=== PATIENT | male | born 1995 | race Two or more races ===

== ENCOUNTER 2024-02-22 00:38 | Inpatient (IN) | payer OTHER ==
[~2024-02-22] VITALS: Ht 165.1 cm; Wt 55.9 kg
[2024-02-22 02:37] LABS: BASOPHILS % (AUTO) 0.7 % (0.0-2.0); EOSINOPHILS % (AUTO) 2.4 % (1.0-6.0); HEMATOCRIT 45.2 % (41-53); HEMOGLOBIN 15.3 g/dL (13.5-17.5); LYMPHOCYTES # (AUTO) 2.3 K/uL (1.0-4.8); LYMPHOCYTES % (AUTO) 34.8 % (22.0-44.0); MEAN CORPUSCULAR HEMOGLOBIN 31.5 pg (26.0-34.0); MEAN CORPUSCULAR HGB CONC 33.9 G/dL (31.0-37.0); MEAN CORPUSCULAR VOLUME 93 fL (80-100); MONOCYTES # (AUTO) 0.7 K/uL (0.1-1.0); MONOCYTES % (AUTO) 10.9 % (2.0-9.0); NEUTROPHILS # (AUTO) 3.4 K/uL (1.8-7.7); NEUTROPHILS % (AUTO) 51.2 % (40.0-70.0); PLATELET COUNT (AUTO) 263 K/uL (150-450); RED BLOOD CELL COUNT(AUTO) 4.88 MIL/uL (4.50-5.90); WHITE BLOOD COUNT (AUTO) 6.6 K/uL (4.5-11.0)
[2024-02-22 02:45] LABS: ANION GAP 3 mmol/L (8-16); CALCIUM, TOTAL 8.8 mg/dL (8.8-10.5); CARBON DIOXIDE 33 mmol/L (22-29); CHLORIDE 103 mmol/L (98-107); CREATININE 0.71 mg/dL (0.60-1.30); GLOMERULAR FILTR. RATE CALC > 60 mL/min (>60); GLUCOSE,RANDOM 88 mg/dL (70-110); POTASSIUM 3.9 mmol/L (3.5-5.1); SODIUM SERUM 139 mmol/L (136-145); UREA NITROGEN, BLOOD 11 mg/dL (7-18)
[2024-02-22 02:59] LABS: ALANINE AMINOTRANSFERASE 30 U/L (12-78); ALBUMIN 3.6 g/dL (3.4-5.0); ALKALINE PHOSPHATASE 103 U/L (46-116); ASPARTATE AMINOTRANSFERASE 19 U/L (15-37); BILIRUBIN,TOTAL 0.4 mg/dL (0.1-1.0); LIPASE 64 U/L (16-77); TOTAL PROTEIN, SERUM 7.5 g/dL (6.4-8.2)
[2024-02-22] MEDS: MORPHINE SULFATE 2 MG/ML SYRINGE IVP ONE (05:23)
[2024-02-22] MEDS ORDERED: ONDANSETRON HCL 4 MG/2 ML VIAL IVP PRN (05:30)
[2024-02-22] MEDS: HEPARIN SODIUM,PORCINE 5,000 UNITS/ML VIAL SQ SCH (08:12)
[2024-02-22] MEDS: DOCUSATE SODIUM 100 MG CAPSULE PO SCH (08:14)
[2024-02-22 11:19] LABS: APPEARANCE,URINE CLEAR (CLEAR); BILIRUBIN,URINE NEGATIVE (NEGATIVE); COLOR,URINE LIGHT YELLOW (YELLOW); GLUCOSE, URINE (UA) NEGATIVE (NEGATIVE); KETONES,URINE NEGATIVE (NEGATIVE); LEUKOCYTE ESTERASE ,URINE NEGATIVE (NEGATIVE); NITRATE,URINE NEGATIVE (NEGATIVE); OCCULT BLOOD,URINE NEGATIVE (NEGATIVE); PROTEIN,URINE NEGATIVE (NEGATIVE); UROBILINOGEN,URINE <=1.0 mg/dL (<=1.0)
[2024-02-22 11:20] LABS: SPECIFIC GRAVITIY, URINE > 1.050 (1.003-1.030)
[2024-02-22 12:10] VITALS: BP 99/52; PULSE 59; RESP 20; TEMP 97.7; O2SAT 100
[2024-02-22] MEDS ORDERED: INFLUENZA VIRUS VACCINE TVS (6MO+) 2024-25/PF 45 MCG/0.5 ML SYRINGE IM. ONE (14:15)
[2024-02-22] MEDS: RINGERS SOLUTION,LACTATED 1,000 ML IV ONE (15:25)
[2024-02-22] MEDS: KETOROLAC TROMETHAMINE 15 MG/ML VIAL IVP PRN (15:37)
[2024-02-22 16:00] VITALS: BP 104/61; PULSE 77; RESP 18; TEMP 97.6; O2SAT 100
[2024-02-22 19:42] VITALS: BP 105/67; PULSE 70; RESP 18; TEMP 97.9; O2SAT 98
[2024-02-23 04:56] VITALS: BP 109/71; PULSE 76; RESP 18; TEMP 98.3; O2SAT 98
[2024-02-23 07:16] LABS: BASOPHILS % (AUTO) 0.6 % (0.0-2.0); EOSINOPHILS % (AUTO) 2.2 % (1.0-6.0); HEMOGLOBIN 14.8 g/dL (13.5-17.5); LYMPHOCYTES # (AUTO) 1.7 K/uL (1.0-4.8); MEAN CORPUSCULAR HEMOGLOBIN 31.9 pg (26.0-34.0); MEAN CORPUSCULAR HGB CONC 34.4 G/dL (31.0-37.0); MEAN CORPUSCULAR VOLUME 93 fL (80-100); MONOCYTES # (AUTO) 0.5 K/uL (0.1-1.0); MONOCYTES % (AUTO) 9.1 % (2.0-9.0); NEUTROPHILS # (AUTO) 3.6 K/uL (1.8-7.7); NEUTROPHILS % (AUTO) 60.1 % (40.0-70.0); PLATELET COUNT (AUTO) 231 K/uL (150-450); RED BLOOD CELL COUNT(AUTO) 4.63 MIL/uL (4.50-5.90); WHITE BLOOD COUNT (AUTO) 5.9 K/uL (4.5-11.0)
[2024-02-23 07:34] LABS: ANION GAP 4 mmol/L (8-16); CALCIUM, TOTAL 8.8 mg/dL (8.8-10.5); CARBON DIOXIDE 32 mmol/L (22-29); CHLORIDE 106 mmol/L (98-107); CREATININE 0.86 mg/dL (0.60-1.30); GLOMERULAR FILTR. RATE CALC > 60 mL/min (>60); GLUCOSE,RANDOM 76 mg/dL (70-110); POTASSIUM 4.2 mmol/L (3.5-5.1); SODIUM SERUM 142 mmol/L (136-145); UREA NITROGEN, BLOOD 18 mg/dL (7-18)
[2024-02-23 08:07] VITALS: BP 110/57; PULSE 75; RESP 18; TEMP 98.5
[2024-02-23] MEDS: ACETAMINOPHEN 325 MG TABLET PO PRN (08:18)
== END 2024-02-23 19:15 | DRG 394 ==
LOC: EMS 00:41 → EDH 05:43 → 6S 12:10
PROVIDERS: ADMIT Internal Medicine; ATTEND Internal Medicine
DX: K40.30 Unilateral inguinal hernia, with obstruction, without gangrene, not specified as recurrent (principal); E46 Unspecified protein-calorie malnutrition; E87.3 Alkalosis; E86.0 Dehydration; I95.9 Hypotension, unspecified; N50.82 Scrotal pain; Z88.0 Allergy status to penicillin; Z68.20 Body mass index [BMI] 20.0-20.9, adult
CPT/HCPCS: 74177; 80048; 80076; 81003; 83690; 83735; 85025; 86706; 87340; J1644; J1885; J2270; J7120

== ENCOUNTER 2024-03-24 20:22 | Inpatient (IN) | payer OTHER ==
[~2024-03-24] VITALS: Ht 162.6 cm; Wt 63.6 kg
[2024-03-24 21:30] LABS: BASOPHILS % (AUTO) 0.6 % (0.0-2.0); EOSINOPHILS % (AUTO) 1.1 % (1.0-6.0); HEMATOCRIT 43.2 % (41-53); HEMOGLOBIN 14.7 g/dL (13.5-17.5); LYMPHOCYTES # (AUTO) 1.7 K/uL (1.0-4.8); LYMPHOCYTES % (AUTO) 22.6 % (22.0-44.0); MEAN CORPUSCULAR HEMOGLOBIN 31.2 pg (26.0-34.0); MEAN CORPUSCULAR HGB CONC 34.1 G/dL (31.0-37.0); MEAN CORPUSCULAR VOLUME 92 fL (80-100); MONOCYTES # (AUTO) 0.7 K/uL (0.1-1.0); MONOCYTES % (AUTO) 8.7 % (2.0-9.0); NEUTROPHILS # (AUTO) 5.2 K/uL (1.8-7.7); PLATELET COUNT (AUTO) 269 K/uL (150-450); RED BLOOD CELL COUNT(AUTO) 4.72 MIL/uL (4.50-5.90); RED CELL DISTRIBUTION WIDTH 12.7 % (11.5-14.5); WHITE BLOOD COUNT (AUTO) 7.7 K/uL (4.5-11.0)
[2024-03-24 21:40] LABS: ANION GAP 9 mmol/L (8-16); CALCIUM, TOTAL 9.3 mg/dL (8.8-10.5); CARBON DIOXIDE 28 mmol/L (22-29); CHLORIDE 104 mmol/L (98-107); GLOMERULAR FILTR. RATE CALC > 60 mL/min (>60); GLUCOSE,RANDOM 127 mg/dL (70-110); SODIUM SERUM 141 mmol/L (136-145); UREA NITROGEN, BLOOD 10 mg/dL (7-18)
[2024-03-24 21:44] LABS: ALANINE AMINOTRANSFERASE 70 U/L (12-78); ALBUMIN 3.7 g/dL (3.4-5.0); ALKALINE PHOSPHATASE 114 U/L (46-116); ASPARTATE AMINOTRANSFERASE 36 U/L (15-37); BILIRUBIN,TOTAL 0.2 mg/dL (0.1-1.0); LIPASE 56 U/L (16-77); TOTAL PROTEIN, SERUM 7.8 g/dL (6.4-8.2)
[2024-03-24] MEDS: RINGERS SOLUTION,LACTATED 1,000 ML IV ONE (23:00)
[2024-03-24] MEDS ORDERED: MAGNESIUM HYDROXIDE SUSPENSION 30 ML UDCUP PO PRN (23:30)
[2024-03-24] MEDS ORDERED: OxyCODONE HCL/ACETAMINOPHEN 5-325 MG TABLET PO PRN (23:30)
[2024-03-24] MEDS ORDERED: ACETAMINOPHEN 325 MG TABLET PO PRN (23:30)
[2024-03-25] MEDS: MORPHINE SULFATE 2 MG/ML SYRINGE IVP PRN (02:29)
[2024-03-25] MEDS: SODIUM CHLORIDE 0.9% 1,000 ML IV ONE (02:31)
[2024-03-25] MEDS: ONDANSETRON HCL 4 MG/2 ML VIAL IVP PRN (02:39)
[2024-03-25 03:52] VITALS: BP 124/74; PULSE 65; RESP 18; TEMP 98; O2SAT 100
[2024-03-25 04:25] VITALS: BP 121/77; PULSE 67; RESP 18; TEMP 98.1; O2SAT 99
[2024-03-25] MEDS ORDERED: ROCURONIUM BROMIDE 10 MG/ML 5 ML VIAL ONE (06:39)
[2024-03-25] MEDS ORDERED: KETOROLAC TROMETHAMINE 60 MG/2 ML VIAL IM ONE (06:39)
[2024-03-25] MEDS ORDERED: DEXAMETHASONE SOD PHOS 4 MG/ML VIAL ONE (06:39)
[2024-03-25] MEDS ORDERED: LIDOCAINE/PF 2% 5 ML VIAL ONE (06:39)
[2024-03-25] MEDS ORDERED: EPHEDrine SULFATE 50 MG/ML VIAL ONE (06:39)
[2024-03-25] MEDS ORDERED: GLYCOPYRROLATE 0.2 MG/ML VIAL ONE (06:39)
[2024-03-25] MEDS ORDERED: SUGAMMADEX SODIUM 200 MG/2 ML VIAL IVP ONE (06:39)
[2024-03-25] MEDS ORDERED: ONDANSETRON HCL 4 MG/2 ML VIAL ONE (06:39)
[2024-03-25] MEDS ORDERED: FentaNYL CITRATE PF 100 MCG/2 ML VIAL ONE (06:39)
[2024-03-25] MEDS ORDERED: MIDAZOLAM HCL 2 MG/2 ML VIAL ONE (06:39)
[2024-03-25] MEDS ORDERED: PROPOFOL 1% 20 ML VIAL IVP ONE (06:39)
[2024-03-25 08:34] VITALS: BP 126/70; PULSE 72; RESP 18; TEMP 98; O2SAT 100
[2024-03-25] MEDS: DOCUSATE SODIUM 100 MG CAPSULE PO SCH (09:00)
[2024-03-25] MEDS ORDERED: MEPERIDINE-PF 25 MG/ML VIAL IVP PRN (10:30)
[2024-03-25] MEDS ORDERED: FentaNYL CITRATE PF 100 MCG/2 ML VIAL IVP PRN (10:30)
[2024-03-25] MEDS ORDERED: HYDROmorphone HCL 2 MG/ML SYRINGE IVP PRN ×2 (10:30→13:00)
[2024-03-25] MEDS ORDERED: CeFAZolin SODIUM 1 GM VIAL ONE (10:33)
[2024-03-25] MEDS: ETHYL ALCOHOL 62% ANTISEPTIC NASAL SANITIZER 0.6 ML AMPUL NASAL ONE ×2 (10:59→11:51)
[2024-03-25] MEDS ORDERED: RINGERS SOLUTION,LACTATED 1,000 ML IV ONE ×2 (11:45→12:23)
[2024-03-25] MEDS ORDERED: CHLORHEXIDINE GLUCONATE 2% TOWELETTE [2'S/6'S] TP ONE (11:50)
[2024-03-25] MEDS: CHLORHEXIDINE GLUCONATE 2% TOWELETTE [2'S/6'S] TP ONE (11:50)
[2024-03-25] MEDS: RINGERS SOLUTION,LACTATED 1,000 ML IV ONE (11:54)
[2024-03-25] MEDS: BUPIVACAINE 0.25%/EPI 1:200,000/PF 30 ML VIAL ONE (11:56)
[2024-03-25] MEDS: CefTRIAXone SODIUM 1 GM/VIAL ONE (11:57)
[2024-03-25] MEDS ORDERED: MORPHINE SULFATE 4 MG/ML SYRINGE IVP PRN (13:00)
[2024-03-25 13:30] VITALS: BP 126/82; PULSE 74; RESP 18; TEMP 97.7; O2SAT 98
[2024-03-25] MEDS: IBUPROFEN 400 MG TABLET PO SCH (16:14)
[2024-03-25] MEDS: OXYGEN THERAPY IH SCH (20:00)
[2024-03-25] MEDS: FAMOTIDINE 20 MG TABLET PO SCH (20:11)
[2024-03-25 20:12] VITALS: BP 105/67; PULSE 68; RESP 18; TEMP 98.1; O2SAT 98
[2024-03-26 04:42] VITALS: BP 114/63; PULSE 75; RESP 18; TEMP 97.7; O2SAT 98
[2024-03-26] MEDS: HYDROCODONE/ACETAMINOPHEN 5-325 MG TABLET PO PRN (04:54)
[2024-03-26 08:04] VITALS: BP 119/67; PULSE 65; RESP 18; TEMP 97.9; O2SAT 97
[2024-03-26 08:06] LABS: HEPATITIS C AB (EIA) Non Reactive (Non Reactive)
[2024-03-26] MEDS ORDERED: IBUP-1506 PO (17:10)
[2024-03-26] MEDS ORDERED: ACET-2247 PO (17:14)
== END 2024-03-26 19:30 | DRG 352 ==
LOC: EMS 20:22 → EDH 03-25 00:53 → 6S 03-25 03:31
PROVIDERS: ADMIT Internal Medicine; ATTEND Internal Medicine
PROC: 0YU50JZ Supplement Right Inguinal Region with Synthetic Substitute, Open Approach (ICD-10-PCS; principal; 2024-03-25 11:30)
DX: K40.90 Unilateral inguinal hernia, without obstruction or gangrene, not specified as recurrent (principal); Z88.0 Allergy status to penicillin
CPT/HCPCS: 80048; 80076; 83690; 85025; 86803; 87340; 99285; J0690; J0696; J1100; J1885; J2250; J2270; J2405; J2704; J3010; J3490; J7030; J7120